=== PATIENT | female | born 1985 | race American Indian/Alaskan Native ===

== ENCOUNTER 2017-09-14 00:30 | Emergency (ER) | payer BC, MEDICAID ==
[2017-09-14 00:38] VITALS: TEMP 97.9
--- NOTE | 2017-09-14 01:26 | C.PDOC ---
History Of Present Illness 32 year old female presents to the ED c/o pain to the left upper tooth since Friday. Patient reports she took Excedrin today with no relief. Patient denies trauma, recent dental work, fever, chills, headache. Time Seen by Provider: 09/14/17 01:09 Chief Complaint (Nursing): Dental Pain History Per: Patient History/Exam Limitations: no limitations Onset/Duration Of Symptoms: Days Current Symptoms Are (Timing): Still Present Quality: Positive for: "Pain" Recent travel outside of the [place]: No Additional History Per: Patient Past Medical History Reviewed: Historical Data, Nursing Documentation, Vital Signs Vital Signs: Last Vital Signs Temp 97.9 F 09/14/17 01:38 Pulse 59 L 09/14/17 01:38 Resp 18 09/14/17 01:38 BP 108/70 09/14/17 01:38 Pulse Ox 97 09/14/17 01:46 - Medical History PMH: Asthma (since 2009) Surgical History: No Surg Hx Family History: States: Unknown Family Hx - Social History Hx Tobacco Use: No Hx Alcohol Use: Yes Hx Substance Use: No - Immunization History Hx Tetanus Toxoid Vaccination: No Hx Influenza Vaccination: No Hx Pneumococcal Vaccination: No Review Of Systems Constitutional: Negative for: Fever, Chills ENT: Positive for: Mouth Pain. Negative for: Mouth Swelling, Throat Pain Cardiovascular: Negative for: Chest Pain Respiratory: Negative for: Shortness of Breath Gastrointestinal: Negative for: Vomiting Skin: Negative for: Rash Neurological: Negative for: Headache, Dizziness Physical Exam - Physical Exam Appears: Non-toxic, No Acute Distress Skin: Normal Color, Warm, Dry Head: Atraumatic, Normacephalic Eye(s): bilateral: Normal Inspection Nose: No Discharge Oral Mucosa: Moist Tongue: No Swelling Lips: No Swelling Teeth: Caries (multiple with filling in place ), Tender To Palpation (left upper posterior molar) Gingiva: No Swelling, No Bleeding Throat: Normal, No Erythema, No Exudate Neck: Normal ROM, Supple Extremity: Normal ROM Neurological/Psych: Oriented x3, Normal Speech Gait: Steady ED Course And Treatment O2 Sat by Pulse Oximetry: 97 (ON RA) Pulse Ox Interpretation: Normal Progress Note: Plan: - Motrin 800 mg PO. - Lidocaine 2% 15 ml PO. Patient reports improvement to pain after medications were given. Patient advised to follow up with dentist on Friday for further evaluation. Disposition Counseled Patient/Family Regarding: Diagnosis, Need For Followup, Rx Given - Disposition Referrals: Dental office, Dentist [Other] Disposition: HOME/ ROUTINE Disposition Time: Condition: STABLE Additional Instructions: Take meds as directed Avoid very cold and hot food Follow up with dentist on friday Return to ER if worse Prescriptions: Ibuprofen [Motrin Tab] 800 mg PO QID #24 tab Instructions: Dental Pain (DC), Ibuprofen Forms: [facility] ([employer]) - Clinical Impression Clinical Impression: Dental caries - PA / [employer]CE / Resident Statement MD/DO has reviewed & agrees with the documentation as recorded. - Scribe Statement The provider has reviewed the documentation as recorded by the Scribe Hector Hector All medical record entries made by the Scribe were at my direction and personally dictated by me. I have reviewed the chart and agree that the record accurately reflects my personal performance of the history, physical exam, medical decision making, and the department course for this patient. I have also personally directed, reviewed, and agree with the discharge instructions and disposition.
[2017-09-14 01:41] VITALS: BP 108/70; PULSE 59; RESP 18
[2017-09-14 01:43] VITALS: O2SAT 97
== END 2017-09-14 01:41 | disposition home or self-care (01) ==
LOC: C.ER 00:30
DX: K02.9 Dental caries, unspecified (principal)